=== PATIENT | female | born 1985 ===

== ENCOUNTER 2017-12-12 09:54 | Outpatient (CLI) | payer OTHER ==
--- NOTE | 2017-12-12 11:41 | ULT ---
TRANSABDOMINAL AND TRANSVAGINAL PELVIC ULTRASOUND WITH DOPPLER: 12/12/2017 PROVIDED CLINICAL HISTORY: Right lower quadrant pain. FINDINGS: The uterus measures about 7.4 x 3.8 x 4.4 cm and demonstrates an unremarkable sonographic appearance. Endometrial thickness is about 4 to 5 mm. The right ovary measures about 3.9 x 2.5 x 1.6 cm and appears sonographically normal. The left ovary measures about 3.2 x 1.9 x 1.5 cm and appears sonographically normal. Color Doppler and spectral analysis of the ovarian wave-forms demonstrates normal flow bilaterally. There is no evidence for significant free pelvic fluid. IMPRESSION: Unremarkable pelvic ultrasound. POS: [facility]
== END 2017-12-12 09:55 | disposition home or self-care (01) ==
LOC: BICULT 09:54
PROVIDERS: ATTEND Family Medicine
DX: R10.31 Right lower quadrant pain (principal)
CPT/HCPCS: 76856